=== PATIENT | female | born 1955 | race Caucasian/White ===

== ENCOUNTER 2019-12-18 11:45 | Observation (INO) | payer OTHER ==
[~2019-12-18] VITALS: Ht 172.7 cm; Wt 100.0 kg
[2019-12-18 12:03] VITALS: BP 140/52
[2019-12-18 12:51] LABS: BASOPHILS 0.2 % (0-2); EOSINOPHILS 0.9 % (0-7); HEMATOCRIT 39.9 % (36.0-48.0); HEMOGLOBIN 13.1 g/dL (12-16); IMMATURE GRANULOCYTES 0.2 % (0-5); LYMPHOCYTES 16.8 % (15-50); MCH 29.4 pg (26.0-34.0); MCHC 32.8 g/dL (31.0-37.0); MCV 89.7 fL (80.0-100.0); MEAN PLATELET VOLUME 9.3 fL (7.4-10.4); MONOCYTES 6.9 % (2-11); PLATELET COUNT 220 10x3/uL (130-400); RBC 4.45 10x6/uL (4.00-5.40); WBC 9.2 10x3/uL (4.8-10.8)
[2019-12-18 13:01] LABS: CALC OSMOLALITY 278 mosm/kg (275-300); CARBON DIOXIDE 28.6 mmol/L (21.0-32.0); CHLORIDE - SERUM 105 mmol/L (98-107); CREATININE - SERUM 0.9 mg/dL (0.6-1.3); GLUCOSE 99 mg/dL (74-106); POTASSIUM - SERUM 3.7 mmol/L (3.5-5.1); SODIUM 139 mmol/L (136-145); UREA NITROGEN 14 mg/dL (7-18); eGFR NON AFRICAN AMERICAN 67 mL/min (90-120)
[2019-12-18 13:14] LABS: APTT 32.2 SECONDS (22.8-39.4); INR 1.04 (0.85-1.17); PROTIME 13.5 SECONDS (11.6-15.0)
[2019-12-18 13:17] LABS: ALBUMIN 3.3 g/dL (3.4-5.0); ALKALINE PHOSPHATASE 85 U/L (30-120); ALT (SGPT) 14 U/L (10-68); BILIRUBIN - TOTAL 0.39 mg/dL (0.2-1.3); CKMB 0.6 U/L (0.0-3.6); CREATINE KINASE 43 UL (21-215); MAGNESIUM - SERUM 2.2 mg/dL (1.8-2.4); PROTEIN - SERUM 6.8 g/dL (6.4-8.2); TROPONIN-I < 0.017 ng/mL (0.000-0.060)
--- NOTE | 2019-12-18 15:28 | NUR ---
PATIENT ARRIVED TO UNIT FROM ED VIA STRETCHER AND ADMITTED TO ROOM 2119 FOR COMPLAINTS OF INTERMITTANT CHEST PAIN THAT RADIATES TO LEFT JAW AND LEFT ARM. PATIENT ALERT/ORIENTED, AMBULATORY. PATIENT PLACED ON TELEMETRY, SB WITH RATE OF 56. PATIENT AND FAMILY AT BEDSIDE REQUESTING FOOD FOR PATIENT. CALL LIGHT WITHIN REACH. ORIENTED TO ROOM AND STAFF. NO DISTRESS UPON ARRIVAL. PRN O2 PLACED AT BEDTIME. FRESH ICE WATER PROVIDED.
[2019-12-18 16:01] LABS: CKMB 0.5 U/L (0.0-3.6); CREATINE KINASE 43 UL (21-215)
[2019-12-18 16:02] LABS: TROPONIN-I < 0.017 ng/mL (0.000-0.060)
[2019-12-18 16:58] VITALS: BP 137/66; BMI 33.5
[2019-12-18 20:00] VITALS: BP 113/62
--- NOTE | 2019-12-18 20:15 | NUR ---
COMPLETION OF INITIAL ROUNDS. PT UP IN BATHROOM, VOMITTING THE FOOD SHE ATE FROM HER DINNER. HER 150'S. PT FEELING VERY NAUSEOUS, MEDICATED WITH ZOFRAN 4MG SIVP AND PT NOW RESTING IN BED. MONITOR RESPONSE.
[2019-12-18 21:36] LABS: CKMB 0.5 U/L (0.0-3.6); CREATINE KINASE 45 UL (21-215); TROPONIN-I < 0.017 ng/mL (0.000-0.060)
--- NOTE | 2019-12-18 22:59 | NUR ---
PT STILL FEELING SOMEWHAT ANXIOUS AND HAVING SOME DISCOMFORT/PAIN TO CHEST/NECK AREA. ALSO REPORATED A BURNING FEELING IN HER CHEST, GI IN NATURE. DISCUSSED MEDICATION OPTIONS. ADMINISTERED MORPHINE 2MG SIVP FOR NECK/UPPER CHEST DISCOMFORT AND ALSO GAVE PROTONIX IV FOR THE GI DISCOMFORT. WILL MONITOR RESPONSE, CPOC. CURRENTLY SR/83 PER TELEMETRY. CALL LIGHT IN REACH. CPOC.
[2019-12-19] VITALS: BP 109/44
--- NOTE | 2019-12-19 00:54 | NUR ---
RESTING WITH EYES CLOSED. / PER TELEMETRY. NO FURTHER DISCOMFORT NOTED. CPOC. CALL LIGHT IN REACH.
[2019-12-19 02:50] LABS: BASOPHILS 0.3 % (0-2); HEMATOCRIT 36.5 % (36.0-48.0); HEMOGLOBIN 11.8 g/dL (12-16); IMMATURE GRANULOCYTES 0.2 % (0-5); LYMPHOCYTES 34.8 % (15-50); MCH 29.1 pg (26.0-34.0); MCHC 32.3 g/dL (31.0-37.0); MCV 90.1 fL (80.0-100.0); MEAN PLATELET VOLUME 9.3 fL (7.4-10.4); NEUTROPHILS 52.7 % (40-80); PLATELET COUNT 217 10x3/uL (130-400); RBC 4.05 10x6/uL (4.00-5.40); RDW 13.2 % (11.5-14.5)
[2019-12-19 03:16] LABS: ALBUMIN 2.7 g/dL (3.4-5.0); ALKALINE PHOSPHATASE 76 U/L (30-120); ALT (SGPT) 13 U/L (10-68); BILIRUBIN - TOTAL 0.52 mg/dL (0.2-1.3); CALC OSMOLALITY 283 mosm/kg (275-300); CALCIUM 8.1 mg/dL (8.5-10.1); CARBON DIOXIDE 28.2 mmol/L (21.0-32.0); CHLORIDE - SERUM 109 mmol/L (98-107); CKMB 0.8 U/L (0.0-3.6); CREATINE KINASE 41 UL (21-215); GLUCOSE 91 mg/dL (74-106); POTASSIUM - SERUM 4.1 mmol/L (3.5-5.1); PROTEIN - SERUM 5.9 g/dL (6.4-8.2); SODIUM 142 mmol/L (136-145); TROPONIN-I < 0.017 ng/mL (0.000-0.060); UREA NITROGEN 15 mg/dL (7-18); eGFR NON AFRICAN AMERICAN 59 mL/min (90-120)
[2019-12-19 04:00] VITALS: BP 110/53
--- NOTE | 2019-12-19 07:15 | NUR ---
RECEIVED PT IN BED [id number] RESP UNLABORED SKIN W/D COLOR WNL DENIES ANY NEEDS OR PAIN AT THIS TIME
[2019-12-19 08:10] VITALS: BP 137/50
--- NOTE | 2019-12-19 10:06 | NUR ---
PT REFUSES SCDs AT THIS TIME
[2019-12-19 10:38] VITALS: Ht 172.7 cm; Wt 100.0 kg
[2019-12-19 17:41] VITALS: BP 138/64
--- NOTE | 2019-12-19 21:14 | NUR ---
1999 INITIAL ROUNDS COMPLETED AND PT RESTING IN BED. DAUGHTER AT BEDSIDE. ALERT/ORIENTED. SLIGHTLY SOB FROM WASHING HER HAIR. PLACED O2 @ 2L/NC. REVIEWED NPO AT MIDNIGHT FOR EGD IN AM. PT C/O GENERALIZED DISCOMFORT TO NECK/CHEST. 2114 BEDTIME MEDS GIVEN. MORPHINE AND ZOFRAN IV GIVEN AT PT REQUEST. PT TEACHING ON PURPOSE FOR NEW MED CARDIZEM. CPOC.
[2019-12-19 21:47] VITALS: BP 126/72
--- NOTE | 2019-12-19 23:38 | NUR ---
PT RESTING WITH NO FURTHER REPORTS OF PAIN/NAUSEA. CPOC.
[2019-12-20 04:00] VITALS: BP 114/60
--- NOTE | 2019-12-20 07:50 | HP ---
PATIENT: ANGELA WOO MEDICAL RECORD: [id number] ACCOUNT: [id number] LOCATION:[address] : 55 ADMISSION DATE: 12/18/19 PCP: No PCP HISTORY AND PHYSICAL EXAMINATION REASON FOR ADMISSION: Chest pain. HISTORY OF PRESENT ILLNESS: The patient is a 64-year-old female who over the last several months has been very fatigued. She has also noticed that she has been having trouble swallowing some food. She has seen our nurse practitioner, Carissa Osullivan last week, getting a 2-3 month history of progressive solid food dysphagia, mainly chicken, beef or dry bread. She sometimes have to vomit, noted to have clear fluid and then the food would come up. She has lost some weight as a result. She has had no change in stools, blood per rectum or nighttime dyspepsia. She was referred to Dr. Babin, but at that point, it has not happened as yet. She states today after getting up, moving around, she developed a new discomfort, it was a wave like substernal chest discomfort radiating up into her left jaw, left scapula and left upper arm. It would come and go, waxing and waning. Not related to activity or meals. She had not eaten. She had no nausea or vomiting with it. In the Emergency Room, she was given nitroglycerin, which almost immediate relief and then some morphine and that has had totally relieved her pain from a 10 to a 3. Fairly stable since admission now. She denies any history of previous heart disease. No history of peptic ulcer disease or reflux. PAST MEDICAL HISTORY: Fibromyalgia, trigeminal neuralgia, exogenous obesity, history of rheumatic fever as a child without cardiac involvement, history of anemia, anxiety, osteoarthritis, has had bilateral Achilles tendon partial tears without surgery, history of bacterial meningitis. ALLERGIES: SULFA. SOCIAL HISTORY: Lifelong nonsmoker, nondrinker. She is . 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 FAMILY HISTORY: Parents in old age. Father had heart disease in his 80s. Mother had mitral valve replacement due to rheumatic fever, but she was in her late 80s as well. MEDICATIONS: No home medicines mentioned. REVIEW OF SYSTEMS: GENERAL: Fatigue for several months with mild weight change. HEENT: No recent visual change, sinus congestion, or sore throat. She wears glasses to read. RESPIRATORY: No SOB or cough. Denies pleuritic type chest pain or hemoptysis. CARDIAC: Denies any recent exertional chest pain, but substernal chest pain today was her new onset with rest or walking in the home. No history of hypertension. She does have history of hyperlipidemia, untreated. GASTROINTESTINAL: She has had solid food dysphagia for several months, getting worse over the last 2 months, she thinks causing some of her weight loss. She has had to vomit multiple times almost daily because of this. Denies any hematemesis or melena. She has no history of gallbladder disease. GENITOURINARY: No dysuria or incontinence. GYNECOLOGIC: No vaginal bleeding. HISTORY AND PHYSICAL [id number] ANGELA WOO ENDOCRINE: Denies polyuria, polydipsia, heat or cold intolerance. NEUROLOGIC: No history of stroke, TIA, vascular headaches, or seizures. PSYCHIATRIC: Denies depressed mood. PHYSICAL EXAMINATION: GENERAL: Alert 64-year-old female at this time, in no acute distress. VITAL SIGNS: Temperature 98.6, pulse 80 and regular, respirations are 18, blood pressure 132/78 with a sat 100% on room air. HEENT: Normocephalic. Eyes are clear, wearing glasses. Oropharynx unremarkable. NECK: No bruits or masses. CHEST: Clear. Chest wall is nontender. BREASTS: Symmetrical. HEART: Regular without MGR. PMI appropriate. ABDOMEN: Obese, soft, nontender throughout. Bowel sounds are active. Liver, kidney, spleen not palpable. PELVIC: Deferred. EXTREMITIES: She has 1+ pedal edema and trace pretibial edema of the knees bilaterally. Joints have good range of motion. Gait was not tested. LABORATORY DATA: Cardiac enzymes were negative initially. CBC is normal. INR is 1.06. BMP is normal. Glucose is 99. Liver functions are normal. Troponin is less than 0.017. DIAGNOSTIC DATA: One-view chest x-ray shows no acute cardiopulmonary disease. EKG shows sinus rhythm with Q-waves in V1 and V2, unchanged from the office EKG from a year ago. ASSESSMENT: 1. Atypical chest pain, responsive to nitroglycerin and morphine. 2. Solid food dysphagia, most likely has an esophageal stricture or hiatal hernia. 3. History of fibromyalgia, trigeminal neuralgia, exogenous obesity, hyperlipidemia. PLAN: The patient will be admitted for serial cardiac enzymes, telemetry, cardiology consult. If stress test is recommended and she passes that, will need upper endoscopy. TRANSINT:[id number] Voice Confirmation ID: [id number] DOCUMENT ID: [id number] MATT MARCIAL MD at 0750 CC: [id number] DICTATION DATE: 12/18/19 173 STEREO COMPILER: 12/18/19 1831 ADM IN [address] [place] [id number] [place] [address]
[2019-12-20 08:49] VITALS: BP 119/63
[2019-12-20 12:14] VITALS: BP 101/47
[2019-12-20 15:23] VITALS: BP 102/48
--- NOTE | 2019-12-20 15:25 | NUR ---
PRE-OPS GIVEN. TO GI LAB BY BED.
--- NOTE | 2019-12-20 15:40 | NUR ---
PATIENT'S ESOPHAGUS DILATED TO 14 CM USING DILATION SYRINGE DURING EGD PROCEDURE
[2019-12-20] MEDS ORDERED: FEXOFENADINE HC60 MG PO (17:07)
[2019-12-20] MEDS ORDERED: CARDIZEM60 MG PO (17:08)
[2019-12-20] MEDS ORDERED: CARAFATE1 G PO (17:12)
[2019-12-20] MEDS ORDERED: PROTONIX40 MG PO (17:13)
--- NOTE | 2019-12-20 18:43 | NUR ---
DC PLANS GIVEN. UNDERSTANDING VOICED. ESCORTED TO CAR BY W/C.
--- NOTE | 2019-12-21 14:49 | ST ---
PATIENT:ANGELA WOO MEDICAL RECORD: [id number] SEX: F LOCATION:[place] [address] ORDER #: ADMISSION DATE: 12/18/19 AGE OF PATIENT: 64 REFERRING PHYSICIAN: INTERPRETING PHYSICIAN: PEDRO LENZ MD DATE OF SERVICE: 12/20/2019 PROCEDURE: Lexiscan directed nuclear stress test. PROCEDURE IN DETAIL: The patient was brought into the nuclear lab. The patient was placed on the nuclear table. The patient had Lexiscan infused with standard protocol. We had rest imaging and stress imaging performed with sestamibi. FINDINGS: The SPECT imaging showed an ejection fraction of 65% without any evidence of ischemia or infarction. IMPRESSION: 1. Normal nuclear Lexiscan directed stress test. 2. Normal left ventricular systolic function. RECOMMENDATIONS: Continue medical management. TRANSINT:[id number] Voice Confirmation ID: [id number] DOCUMENT ID: [id number] PEDRO LENZ MD at 1449 CC: [id number] DICTATION DATE: 12/20/19 1036 THREE DIMENSIONAL ART INSTRUCTOR: 12/20/19 1556 DIS IN 12/20/19 [id number] [place] [address]
--- NOTE | 2019-12-21 14:49 | EC ---
PATIENT:ANGELA WOO DATE OF SERVICE: 12/18/19 SEX: F MEDICAL RECORD: [id number] DATE OF : 55 LOCATION:[address] AGE OF PATIENT: 64 ADMISSION DATE: 12/18/19 REFERRING PHYSICIAN: INTERPRETING PHYSICIAN: PEDRO LENZ MD ECHOCARDIOGRAM REPORT ECHO CHARGES 4 ECHO COMPLETE Date: 12/19/19 CLINICAL DIAGNOSIS: CP ECHOCARDIOGRAPHIC MEASUREMENTS (adult normal given) AC root (d.<3.7cm) 2.9 cm LV Septum d (<1.2 cm> 0.9 cm Valve Excursion 1.6 cm LV Septum (systole) 1.0 cm Left Atria (s.<4.0cm> 3.3 cm LVPW d(<1.2cm) 0.9 cm RV (d.<2.3cm) 2.7 cm LVPW (sytole) 1.2 cm LV diastole(<5.6CM) 5.1 cm MV E-F(>70mm/sec) cm LV systole 4.0 cm LVOT Diameter 1.8 cm MV exc.(>10mm) cm Est.ejection fraction (50-75%) % DOPPLER: LVIT cm/sec A 99 cm/sec E 80 cm/sec LA cm/sec RVSP 27.4 mmHg LVOT 124 cm/sec AOP1/2T m/s Asc. Ao 143 cm/sec RVOT 59 cm/sec RA cm/sec PA 78 cm/sec AV Gradient Peak 8.2 mmHg AV Mean 3.9 mmHg AV Area 2.3 cm MV Gradient Peak 4.3 mmHg MV Mean 2.0 mmHg MV Area cm COMMENTS: It Generalist: Vishnu JANG Folder Seamer: 4 Dr. Lenz TAPE# PACS Pericardial Effusion N DATE OF SERVICE: PROCEDURE: Transthoracic echocardiogram. FINDINGS: 1. Left ventricle: Normal size, shape, structure, and function, ejection fraction 55% to 60%. 2. Left atrium: Normal. 3. Aortic valve appears to be normal. 4. Mitral valve has trace mitral regurgitation, otherwise normal. ECHOCARDIOGRAM REPORT [id number] ANGELA WOO 5. Tricuspid valve has trace tricuspid regurgitation, otherwise normal. RVSP is normal. 6. The right ventricle is normal size, shape, structure, and function. 7. Right atrium is normal in size and shape, structure, and function. 8. Pulmonic valve is normal. TRANSINT:[id number] Voice Confirmation ID: [id number] DOCUMENT ID: [id number] PEDRO LENZ MD at 1449 CC: [id number] DICTATION DATE: 12/20/19 1034 TENSILE TESTER: 12/20/19 1113 DIS IN 12/20/19 [facility] [address] [id number]
== END 2019-12-20 21:05 | disposition home or self-care (01) ==
LOC: D.ER 11:45 → D.M2 13:47 → OBSVTIME 14:55 → D.M2 12-20 21:05
PROVIDERS: Family Medicine; ADMIT Family Medicine; ATTEND Family Medicine
DX: R07.9 Chest pain, unspecified (principal); R13.19 Other dysphagia; M79.7 Fibromyalgia; E78.5 Hyperlipidemia, unspecified; E66.09 Other obesity due to excess calories; G50.0 Trigeminal neuralgia; I48.92 Unspecified atrial flutter; K22.2 Esophageal obstruction; K27.9 Peptic ulcer, site unspecified, unspecified as acute or chronic, without hemorrhage or perforation; J30.9 Allergic rhinitis, unspecified